=== PATIENT | female | born 1935 | race Caucasian/White ===

== ENCOUNTER → 2019-09-09 | Outpatient (CLI) | payer MEDICARE | END | disposition home or self-care (01) | LOC: CFH 14:46 | PROVIDERS: ATTEND Nurse Practitioner Family | DX: J18.9 Pneumonia, unspecified organism (principal); M95.4 Acquired deformity of chest and rib | CPT/HCPCS: 71046 ==

== ENCOUNTER → 2019-10-31 | Outpatient (CLI) | payer MEDICARE ==
[2019-10-31 13:11] LABS: CHLORIDE 107 mmol/L (98-107)
[2019-10-31 13:21] LABS: ALANINE AMINOTRANSFERASE 27 U/L (12-78); ALBUMIN 3.8 g/dL (3.4-5.0); ALKALINE PHOSPHATASE 93 U/L (45-117); ANION GAP 6 mmol/L (5-15); BILIRUBIN,TOTAL 0.5 mg/dL (0.2-1.0); CHOL/HDL RATIO 2.5; CHOLESTEROL, TOTAL 149 mg/dL (140-239); HDL CHOL % 40 % (28-40); HDL CHOLESTEROL (DIRECT) 60 mg/dL (40-60); LDL CHOLESTEROL,CALCULATED 66 mg/dL (54-169); LDL/HDL RATIO 1.1 (0.5-3.0); TOTAL PROTEIN 7.7 g/dL (6.4-8.2); TRIGLYCERIDES 115 mg/dL (50-200); VLDL CHOLESTEROL 23 mg/dL (0-25)
== END | disposition home or self-care (01) ==
LOC: CFH 10:55 → EDSTATUS 13:45
PROVIDERS: ATTEND Internal Medicine Cardiovascular Disease
DX: I08.8 Other rheumatic multiple valve diseases (principal); I11.9 Hypertensive heart disease without heart failure; J43.2 Centrilobular emphysema; J84.9 Interstitial pulmonary disease, unspecified; E78.2 Mixed hyperlipidemia; I25.10 Atherosclerotic heart disease of native coronary artery without angina pectoris; J30.9 Allergic rhinitis, unspecified; J96.10 Chronic respiratory failure, unspecified whether with hypoxia or hypercapnia; J98.4 Other disorders of lung; G47.30 Sleep apnea, unspecified; H90.5 Unspecified sensorineural hearing loss; Z87.891 Personal history of nicotine dependence
CPT/HCPCS: 36415; 71250; 80053; 80061; 93306

== ENCOUNTER 2020-09-15 12:20 | Emergency (ER) | payer MEDICARE ==
[~2020-09-15] VITALS: Ht 162.6 cm; Wt 61.1 kg
--- NOTE | 2020-09-15 12:44 | NUR ---
PT GIVEN RECENT DX PNA AND PRESCRIBED PO ABX 08/31/20. PT STATES SHE HAS HAD DIARRHEA AND GENERALIZED WEAKNESS X 3 DAYS, HX CDIFF IN THE PAST. PT HAS COVID TEST PENDING D/T RECENT STAFF OUTBREAK AT [facility]. PT IS A&OX4, RESPS EVEN AND UNLABORED, NEURO INTACT. PT IS SINUS TACH RATE 90'S ON TUBE CLEANER WITH NO ECTOPY. PT ATTACHED TO ALL MONITORS, DRESSED IN GOWN. CALL LIGHT IN REACH. AWAITING PROVIDER AND ORDERS.
--- NOTE | 2020-09-15 12:55 | NUR ---
special contact isolation and droplet plus isolation precautions in place.
[2020-09-15] MEDS ORDERED: SODIUM CHLORIDE FLUSH 10ML SYR IVF ONE (13:00)
[2020-09-15] MEDS ORDERED: SODIUM CHLORIDE 0.9% 1,000ML IVBOLUS ONE (13:00)
[2020-09-15 13:28] LABS: BASOPHILS % (AUTO) 0 % (0-1); EOSINOPHILS % (AUTO) 0 % (1-7); LYMPHOCYTES % (AUTO) 11 % (22-44); MEAN CORPUSCULAR HEMOGLOBIN 31.1 pg (27.0-34.8); MEAN CORPUSCULAR HGB CONC 34.2 g/dL (32.4-35.8); MEAN PLATELET VOLUME 7.1 fL (7.4-10.4); MONOCYTES % (AUTO) 11 % (2-9); NEUTROPHILS % (AUTO) 77 % (42-75); PLATELET COUNT 114 x10^3/uL (130-400); RED BLOOD COUNT 3.92 x10^6/uL (3.82-5.3); RED CELL DISTRIBUTION WIDTH 12.7 % (9.6-15.2)
--- NOTE | 2020-09-15 13:30 | NUR ---
IN AND OUT FEMALE CATH, 8 FR FOR URINE SAMPLE.
[2020-09-15 13:32] LABS: ANION GAP 10 mmol/L (5-15); CALCIUM 9.1 mg/dL (8.5-10.1); CHLORIDE 100 mmol/L (98-107); CREATININE 1.47 mg/dL (0.55-1.02)
[2020-09-15 13:33] LABS: ALANINE AMINOTRANSFERASE 26 U/L (12-78); ALBUMIN 3.5 g/dL (3.4-5.0)
[2020-09-15 13:35] LABS: ALKALINE PHOSPHATASE 101 U/L (45-117); BILIRUBIN,TOTAL 0.4 mg/dL (0.2-1.0); MD NO; TOTAL PROTEIN 7.9 g/dL (6.4-8.2)
[2020-09-15 14:23] LABS: MICROSCOPIC INDICATED
[2020-09-15 16:33] VITALS: BP 123/61
--- NOTE | 2020-09-15 17:11 | NUR ---
PT AND [id number] REC'VD DISCHARGE EDUCATION AND INSTRUCTIONS. PT AND [id number] HAD NO FURTHER QUESTIONS. PT PLACED IN WHEELCHAIR AND TAKEN TO THE DISCHARGE AREA.
[2020-09-17] MEDS ORDERED: CETI10CA PO (15:28)
[2020-09-17] MEDS ORDERED: UMEC1DIS INH (15:28)
[2020-09-17] MEDS ORDERED: FERR256T PO (15:28)
[2020-09-17] MEDS ORDERED: ASPI81TA45 PO (15:28)
[2020-09-17] MEDS ORDERED: FLONASE 50 MCG (15:28)
[2020-09-17] MEDS ORDERED: NITR0.4T41 SL (15:28)
[2020-09-17] MEDS ORDERED: SERT100T32 PO (15:28)
[2020-09-17] MEDS ORDERED: TRIA1TAB2 PO (15:28)
[2020-09-17] MEDS ORDERED: ALBU90AE INH (15:28)
[2020-09-17] MEDS ORDERED: LISI5TAB7 PO (15:28)
[2020-09-17] MEDS ORDERED: ROSU20TA2 PO (15:28)
[2020-09-17] MEDS ORDERED: METO-93 PO (15:28)
== END 2020-09-15 17:15 | disposition home or self-care (01) ==
LOC: ED 13:50
DX: R19.7 Diarrhea, unspecified (principal); R53.1 Weakness; M54.9 Dorsalgia, unspecified; R00.0 Tachycardia, unspecified
CPT/HCPCS: 36415; 74022; 80053; 81001; 83690; 85025; 93005; 96360; 99285; J7030

== ENCOUNTER → 2020-12-28 | Outpatient (CLI) | payer MEDICARE ==
[~2020-12-28] MED LIST: ALBU90AE INH; ASCO500T9 PO; ASPI81TA45 PO; CETI10CA PO; DEXA4TAB66 PO; FERR256T PO; FLONASE 50 MCG; LEVO500T8 PO; LISI5TAB7 PO; METO-93 PO; NITR0.4T41 SL; PRED20TA PO; ROSU20TA2 PO; SERT100T32 PO; TRIA1TAB2 PO; UMEC1DIS INH; ZINC220C7 PO
== END | disposition home or self-care (01) ==
LOC: CFH 12:47
PROVIDERS: ATTEND Nurse Practitioner Family
DX: J47.9 Bronchiectasis, uncomplicated (principal); J43.9 Emphysema, unspecified; I70.0 Atherosclerosis of aorta; M81.0 Age-related osteoporosis without current pathological fracture; M43.8X6 Other specified deforming dorsopathies, lumbar region; M51.35 Other intervertebral disc degeneration, thoracolumbar region; J84.10 Pulmonary fibrosis, unspecified; Z86.16 Personal history of COVID-19
CPT/HCPCS: 71250